=== PATIENT | female | born 1950 | race Hispanic/Latino ===

== ENCOUNTER → 2020-01-01 | Day surgery (SDC) | payer MEDICARE ==
[2019-12-29 11:06] LABS: BASOPHILS % 0.6 % (0.0-1.0); EOSINOPHILS # (AUTO) 0.1 (0.0-0.4); EOSINOPHILS % 2.2 % (0.0-6.0); HEMATOCRIT 35.1 % (34.2-44.1); HEMOGLOBIN 11.3 g/dL (12.0-16.0); LYMPHOCYTES # (AUTO) 1.8 (1.0-3.2); LYMPHOCYTES % 36.9 % (18.0-39.1); MEAN CORPUSCULAR HEMOGLOBIN 28.8 pg (28-32); MEAN CORPUSCULAR HGB CONC 32.2 g/dL (31-35); MEAN CORPUSCULAR VOLUME 89.3 fL (81-99); MONOCYTES # (AUTO) 0.3 (0.2-0.8); MONOCYTES % 6.7 % (4.4-11.3); NEUTROPHILS # (AUTO) 2.7 (2.1-6.9); NEUTROPHILS % 53.4 % (38.7-80.0); PLATELET COUNT 258 x10e3/uL (140-360); RED BLOOD COUNT 3.93 x10e6/uL (3.6-5.1); RED CELL DISTRIBUTION WIDTH 13.5 % (11.7-14.4)
--- NOTE | 2019-12-29 11:37 | Diagnostic Imaging Report ---
EXAMINATION: CHEST 2 VIEWS INDICATION: Pre-operative COMPARISON: None FINDINGS: LINES/TUBES:None LUNGS:The lungs are well-inflated. No focal consolidation or pulmonary edema. PLEURA:No pleural effusion or pneumothorax. MEDIASTINUM:The cardiomediastinal silhouette appears normal in size and shape. BONES/SOFT TISSUES:No acute osseous injury. ABDOMEN:No free air under the diaphragm. IMPRESSION: No focal pneumonia or pulmonary edema. Signed by: Ghislaine Hu MD on 12/29/2019 11:33 AM
[~2020-01-01] MED LIST: ALPRAZOLAM0.25 M1; ATORVASTATIN CA10 MG PO; BUPIVACAINE HCL 0.5% INJ 30 ML VIAL INJ ONE; BUSPIRONE HCL5 MG PO; CEFAZOLIN SOD 1 GM/NS 50ML 50 ML IV ONE; DEXAMETHASONE SOD PHOS INJ 4 MG/ML VIAL ONE; KETOROLAC TROMETHAMINE 30 MG/ML VIAL ONE; LIDOCAINE HCL 2% LOCAL INJ 5 ML SDV VIAL INJ ONE; LISINOPRIL10 MG PO; MIDAZOLAM HCL 2 MG/2 ML VIAL ONE; MUPIROCIN 2% OINT 22 GM TUBE ONE; ONDANSETRON HCL INJ 2MG/ML 2ML 2 MG/ML VIAL ONE; PROPOFOL IV EMULSION 10 MG/ML 20 ML VIAL ONE; SEVOFLURANE INHAL SOLN 250 ML PEN BTL ONE; ULTRAM50 MG PO
[2020-01-01 08:20] VITALS: BP 125/65
--- NOTE | 2020-01-01 08:51 | Operative Report ---
DATE OF PROCEDURE: 01/01/2020 SURGEON: Kirby Hall MD PREOPERATIVE DIAGNOSES: 1. Osteoarthritis, left long finger, distal interphalangeal joint. 2. Mucous cyst, left long finger DIP joint. POSTOPERATIVE DIAGNOSES: 1. Osteoarthritis, left long finger, distal interphalangeal joint. 2. Mucous cyst, left long finger DIP joint. PROCEDURE: 1. Excision of mucous cyst, left long finger distal interphalangeal joint. 2. Arthrotomy with excision of osteophyte, left long finger distal interphalangeal joint. ANESTHESIA: General. HISTORY: The patient is a 69-year-old [id number]-[id number] female, who has a large mucous cyst with degenerative changes of the left long finger DIP joint. Risks, benefits, and alternatives of treatment were discussed with the patient. She is prepared to undergo the procedure as outlined. PROCEDURE IN DETAIL: The patient was marked preoperatively in the holding area. She was brought to the operating theater and after the induction of adequate general anesthesia, she was prepped and draped in a supine position and a time-out was performed. An incision was marked out over the distal aspect of the middle phalanx across the DIP joint onto the distal phalanx. The left upper extremity was exsanguinated and the tourniquet was inflated to a pressure of 250 mmHg. The incision was made through the skin and subcutaneous tissues, venous tributaries were controlled with bipolar cautery. Starting proximally, the extensor tendon mechanism was identified and the flaps were retracted off the extensor tendon, leaving the paratenon. At the level of the mucous cyst, the skin flaps were sharply dissected off the surface of the cyst and the dissection continues distally. Once the flaps were raised, the mucous cyst was noted to be emanating from the ulnar side of the DIP joint. The cyst was then dissected off the extensor tendon mechanism and traced to the ulnar side of the DIP joint where it was transected at the level of the joint capsule. The joint was then opened through an arthrotomy and irrigation ensued. At this point, the osteophyte at the base of the distal phalanx was identified and using a rongeur, it was removed. The wound was copiously irrigated again to remove all the particular bony matter. The joint capsule was closed with a single 4-0 Vicryl stitch in an interrupted fashion. The skin was then approximated with 5-0 nylon in interrupted horizontal mattress fashion. A Marcaine field block was performed at the base of the digital finger using 0.5% plain Marcaine, a total of 4 mL was used. Bactroban ointment, Xeroform gauze, and a sterile dressing were applied. The tourniquet was deflated, all the fingers pinked up nicely, and the patient returned to recovery room in satisfactory condition and discharged with a postoperative instruction sheet as well as a followup appointment. MD JOSEPH Vega/ATILIO /[id number]
== END | disposition home or self-care (01) ==
LOC: OR 05:48 → EDBD 08:00 → EDSTATUS 08:00
PROVIDERS: ATTEND Plastic Surgery
DX: M19.042 Primary osteoarthritis, left hand (principal); M67.844 Other specified disorders of tendon, left hand; I10 Essential (primary) hypertension; Z01.810 Encounter for preprocedural cardiovascular examination; Z01.812 Encounter for preprocedural laboratory examination; Z01.818 Encounter for other preprocedural examination; Z11.59 Encounter for screening for other viral diseases
CPT/HCPCS: 26210; 36415; 71046; 85025; 93005; J0690; J1100; J1885; J2001; J2405; J2704; U0002; J2250